=== PATIENT | female | born 1955 | race Asian ===

== ENCOUNTER → 2016-12-08 | Day surgery (SDC) | payer OTHER ==
[~2016-12-08] VITALS: Ht 162.6 cm; Wt 68.4 kg
[~2016-12-08] MED LIST: ASPIRIN PO; FENTAnyl 50 MCG/ML VIAL ONE; MIDAZOLAM 1 MG/ML 2 ML INJ ONE; NORVASC; SIMVASTATIN
[2016-12-08 13:24] VITALS: Ht 162.6 cm; Wt 68.4 kg
[2016-12-08 13:50] VITALS: BP 145/64; PULSE 50; RESP 22
[2016-12-08 14:59] VITALS: BP 119/74; PULSE 62; RESP 18
--- NOTE | 2016-12-08 17:36 | GILP ---
DATE OF PROCEDURE: NAME OF PROCEDURE: Colonoscopy. SURGEON: Tyesha Mayer MD PREOPERATIVE DIAGNOSIS: Screening colonoscopy. POSTOPERATIVE DIAGNOSES 1. Colonoscopy all the way to the cecum. 2. Internal hemorrhoids. 3. No colon neoplasm was identified. INDICATION FOR THE PROCEDURE: Ms. Kelly Elizabeth is a 61-year-old female patient who was scheduled fo r screening colonoscopy. The procedure and possible complications are well explained to the patient, she understood and conse nted to the procedure. DESCRIPTION OF PROCEDURE: Under the influence of fentanyl and Versed, the colonoscope was carefully introduced in the rectum and under direct vision, it was advanced all the way to the cecum. FINDINGS: The patient had internal hemorrhoids. No colon neoplasm was identified. She tolerated the procedure very well and there was no complication from the procedure. At the end of the procedure, she was awake with stable vital signs and she was discharged home to the care of h er family. IMPRESSION: 1. Colonoscopy all the way to the cecum. 2. Internal hemorrhoids. 3. No colon neoplasm was identified. PLAN: Next screening colonoscopy in 10 years. Dictated By: TYESHA IQBAL/PEGGY Conf#: [id number] DID#: [id number] CC: TYESHA MAYER MD;*EndCC*
== END | disposition home or self-care (01) ==
LOC: GIL 12:31
PROVIDERS: ATTEND Internal Medicine Gastroenterology
DX: Z12.11 Encounter for screening for malignant neoplasm of colon (principal); K64.8 Other hemorrhoids
CPT/HCPCS: 45378; J2250; J3010

== ENCOUNTER 2016-12-29 11:35 | Day surgery (SDC) | payer OTHER ==
[2016-12-22 14:29] VITALS: BMI 25.5
[2016-12-29] VITALS (9 sets, daily range): BP systolic 104–145; BP diastolic 59–70; PULSE 59–71; RESP 8–18; Ht 163.8 cm; Wt 68.4 kg
[~2016-12-29] VITALS: Ht 163.8 cm; Wt 68.4 kg
[~2016-12-29 11:35] MED LIST changes: +CEFAZOLIN 2 GM/50 ML (PMX) 50 ML IVPB SCH; -FENTAnyl 50 MCG/ML VIAL ONE; -MIDAZOLAM 1 MG/ML 2 ML INJ ONE; +PHENYLephrine (100 MCG/ML) 5ML SYG ONE; +SEVOFLURANE 15 MIN ONE; +SOD CHLORIDE 0.9% 1,000 ML IV SCH
[2016-12-29] MEDS ORDERED: SIMV10TA PO (12:15)
[2016-12-29] MEDS ORDERED: ASPI-664 PO (12:16)
[2016-12-29] MEDS ORDERED: AMLO5TAB4 PO (12:16)
[2016-12-29] MEDS ORDERED: PROPOFOL 20 ML ONE (13:00)
[2016-12-29] MEDS ORDERED: CEFAZOLIN 1 GM INJ ONE (13:00)
[2016-12-29] MEDS ORDERED: MIDAZOLAM 1 MG/ML 2 ML INJ ONE (13:01)
[2016-12-29] MEDS ORDERED: FENTAnyl 50 MCG/ML VIAL ONE (13:01)
--- NOTE | 2016-12-29 13:25 | RADRPT ---
PROCEDURE: XR Chest. CLINICAL INDICATION: Preoperative. Left upper extremity mass. TECHNIQUE: Single frontal view. COMPARISON: None. FINDINGS: The lungs are clear. The heart size is normal. There is calcification in the aorta consistent with atherosclerosis. There is no pleural effusion. There is no pneumothorax. IMPRESSION: 1. Atherosclerosis. 2. Clear lungs. RPTAT: QQ .Marek Larry MD, MD Date Time Electronically viewed and signed by .Marek Larry MD, MD on 12/29/2016 13:24 .R/
[2016-12-29] MEDS ORDERED: LIDOCAINE 2% (MDV) 20 ML INJ ONE (13:29)
[2016-12-29] MEDS ORDERED: BUPIVACAINE 0.5% (SDV) 30 ML INJ ONE (13:29)
[2016-12-29] MEDS ORDERED: MEPERIDINE 25 MG INJ IV PRN (13:30)
[2016-12-29] MEDS ORDERED: morphine (1 MG/ML) 10ML SYRINGE IV PRN ×3 (13:30)
[2016-12-29] MEDS ORDERED: LABETALOL HCL 20MG INJ IV PRN (13:30)
[2016-12-29] MEDS ORDERED: ONDANSETRON 4 MG INJ IV PRN (13:30)
[2016-12-29] MEDS ORDERED: EPHEDrine SULFATE 50 MG/5 ML SYG IV PRN (13:30)
[2016-12-29] MEDS ORDERED: DIPHENHYDRAMINE 50 MG INJ IV PRN (13:30)
[2016-12-29] MEDS ORDERED: HYDROmorphONE (0.2 MG/ML) 10ML SYG IV PRN ×3 (13:30)
[2016-12-29] MEDS ORDERED: ONDANSETRON 4 MG INJ ONE (13:50)
[2016-12-29] MEDS ORDERED: DEXAMETHASONE 4 MG/ML 1 ML INJ ONE (13:50)
[2016-12-29] MEDS ORDERED: METOCLOPRAMIDE 10 MG INJ ONE (13:50)
[2016-12-29] MEDS ORDERED: KETOROLAC 30 MG INJ ONE (13:50)
[2016-12-29] MEDS ORDERED: HYDROCODONE/APAP (5/325) TAB PO ONE (14:30)
--- NOTE | 2016-12-29 14:45 | OPR ---
DATE OF OPERATION: 12/29/2016 INDICATION: This is a 61-year-old female with a left arm and left neck mass. She requests surgical repair. Risks, alternatives, benefits, and personnel were discussed with the patient. The patient expressed understanding and consents to the operation. PREOPERATIVE DIAGNOSIS: Left arm mass and left neck mass. POSTOPERATIVE DIAGNOSIS: Left arm mass and left neck mass. OPERATIONS: 1. Excision of left arm mass with 4 cm size incision and 3 cm size mass. 2. Excision of left neck mass with 3 cm size incision and 2 cm size mass. 3. Localized adjacent tissue transfer with the use of skin flaps. SURGEON: Dave Stephens MD SPECIMEN: Left arm and left neck masses. COMPLICATIONS: None. ANESTHESIA: General. DESCRIPTION OF PROCEDURE: The patient was taken to the OR and prepped and draped in the usual steri le fashion. Surgical timeout was performed. IV antibiotics were given. Transverse incision of the left arm is made with a 15 blade. Dissection cautery was carried down to the mass and circumferent ially excised. There was good hemostasis. Due to tissue defect, localized adjacent tissue transfer with the use of skin flaps was perform. Multilayer closure with interrupted 3-[address]ples. Local anesthesia was injected. Attention was paid to the left neck mass. Oblique incision was made with a 15 blade. Dissection cautery was carried down to the mass and circumferentially exc ised. There was good hemostasis. Due to the tissue defect, localized adjacent skin transfer with t he use of skin flaps was performed. Multilayer closed with interrupted 3-0 Vicryl and running 4-0 M onocryl. Local anesthesia was injected. Both sites were covered with dry dressing. Dictated By: DAVE STEPHENS MD SB/PEGGY Conf#: [id number] DID#: [id number]
--- NOTE | 2016-12-31 20:52 | RADRPT ---
Vent Rate: 62 bpm RR Interval: 0 msec OK Interval: 134 msec QRS Duration: 84 msec QT Interval: 410 msec QTC Interval: 416 msec P-R-T [place]: 73 - 73 - 54 degrees Normal sinus rhythm Normal ECG Electronically Signed By: Luke Burch [id number]
== END 2016-12-29 15:52 | disposition home or self-care (01) ==
LOC: SDS 11:35
PROVIDERS: ATTEND Surgery
DX: D17.22 Benign lipomatous neoplasm of skin and subcutaneous tissue of left arm (principal); K11.23 Chronic sialoadenitis; I10 Essential (primary) hypertension
CPT/HCPCS: 14020; 14040; 71010; 88307; 93005; J0690; J1100; J1170; J1885; J2250; J2370; J2405; J2765; J3010